=== PATIENT | male | born 1965 | race Caucasian/White ===

== ENCOUNTER 2018-03-09 21:12 | Inpatient (IN) ==
[~2018-03-09 21:12] MED LIST: HEPARIN/NACL 0.9% 2 UNITS/ML 1,500 ML IV ONE; MIDAZOLAM 2 MG/2 ML VIAL ONE; fentaNYL 100 MCG/2 ML VIAL ONE
[2018-03-09] MEDS ORDERED: NITROGLYCERIN DRIP 50 MG/250 ML BOTTLE IV ONE (21:38)
[2018-03-09] MEDS ORDERED: VERAPAMIL 5 MG/2 ML VIAL ONE (21:38)
[2018-03-09] MEDS ORDERED: MIDAZOLAM 2 MG/2 ML VIAL ONE (21:52)
[2018-03-09] MEDS ORDERED: EPTIFIBATIDE 20,000 MCG/10 ML VIAL ONE (21:58)
[2018-03-09] MEDS ORDERED: EPTIFIBATIDE 75 MG/100 ML BOTTLE IV ONE (21:58)
[2018-03-09] MEDS ORDERED: HEPARIN/NACL 0.9% 2 UNITS/ML 500 ML IV ONE (22:13)
[2018-03-09] MEDS ORDERED: NITROGLYCERIN SL 0.4 MG TABLET SL PRN (23:27)
[2018-03-09] MEDS ORDERED: ACETAMINOPHEN 325 MG TABLET PO PRN (23:27)
[2018-03-09] MEDS ORDERED: ZALEPLON 5 MG CAPSULE PO PRN (23:27)
[2018-03-09] MEDS ORDERED: ACETAMINOPHEN/CODEINE 300-30 MG TABLET PO PRN (23:27)
[2018-03-09] MEDS ORDERED: SODIUM CHLORIDE 0.45% 1,000 ML IV SCH (23:30)
[2018-03-10 00:16] LABS: Basophils % 0.2 % (0.0-0.8); Eosinophils % 0.4 % (0.00-10.9); Hematocrit 41.2 VOL% (42.0-52.0); Hemoglobin 14.5 GM/DL (14.0-18.0); Immature Granulocytes % 0.3 %; Immature Granulocytes Absolute 0.03 #; Lymphocytes % 32.2 % (21.2-54.2); Mean Corpuscular HGB Conc 35.2 GM/DL (32-36); Mean Corpuscular Hemoglobin 29 PG (27-34); Mean Corpuscular Volume 82.6 FL (87-102); Mean Platelet Volume 12.4 FL (9.6-12.0); Neutrophils # 5.2 10*3/uL (1.4-7.4); Neutrophils % 55.9 % (38.7-73.9); Platelet Count 139 T/CUMM (130-400); Red Blood Count 4.99 MC/CUMM (3.8-5.5); Red Cell Distribution Width 12.7 % (9.3-17.3); White Blood Count 9.4 T/CUMM (4-12)
[2018-03-10 00:39] LABS: Albumin 3.3 G/DL (3.4-5.0); Bilirubin,Total 2.4 MG/DL (0.2-1.0); Calcium 8.3 MG/DL (8.5-10.1); Osmolality,Calculated 280.8 MOS/KG (273-304); Potassium 3.5 MMOL/L (3.5-5.1); Total Protein 7.1 G/DL (6.4-8.3)
[2018-03-10 00:44] LABS: Troponin I Only 7.98 NG/ML (0.00-0.045)
[2018-03-10] MEDS ORDERED: NITROGLYCERIN DRIP 50 MG/250 ML BOTTLE IV PRN (00:58)
[2018-03-10] MEDS: fentaNYL 100 MCG/2 ML VIAL IV PRN ×3 (03:03→10:23)
[2018-03-10 04:53] LABS: Basophils % 0.4 % (0.0-0.8); Eosinophils % 0.2 % (0.00-10.9); Hematocrit 38.4 VOL% (42.0-52.0); Immature Granulocytes % 0.4 %; Immature Granulocytes Absolute 0.04 #; Lymphocytes # 1.9 10*3/uL (1.4-4.0); Lymphocytes % 17.1 % (21.2-54.2); Mean Corpuscular HGB Conc 36.5 GM/DL (32-36); Mean Corpuscular Hemoglobin 29 PG (27-34); Mean Corpuscular Volume 80.2 FL (87-102); Mean Platelet Volume 11.7 FL (9.6-12.0); Monocytes # 1.1 10*3/uL (0.11-0.8); Neutrophils % 71.9 % (38.7-73.9); Platelet Count 132 T/CUMM (130-400); Red Blood Count 4.79 MC/CUMM (3.8-5.5); Red Cell Distribution Width 12.6 % (9.3-17.3)
[2018-03-10 05:26] LABS: Calcium 8.2 MG/DL (8.5-10.1); Osmolality,Calculated 275.2 MOS/KG (273-304); Potassium 3.5 MMOL/L (3.5-5.1); Risk Ratio 3.84; VLDL CHOLESTEROL 27.2 MG/DL
[2018-03-10] MEDS: ONDANSETRON 4 MG/2 ML VIAL IV PRN ×4 (07:58→21:27)
[2018-03-10] MEDS ORDERED: TICAGRELOR 90 MG TABLET PO SCH (09:00)
[2018-03-10] MEDS: CARVEDILOL 6.25 MG TABLET PO SCH ×2 (09:02→20:38)
[2018-03-10] MEDS: ISOSORBIDE MONONITRATE 30 MG TABLET PO SCH (09:02)
[2018-03-10] MEDS: PANTOPRAZOLE 40 MG TABLET PO SCH (09:02)
[2018-03-10] MEDS: ASPIRIN EC 81 MG TABLET PO SCH (09:02)
[2018-03-10 10:00] LABS: CKMB % 2.2 %
[2018-03-10 10:01] LABS: Troponin I Only 6.55 NG/ML (0.00-0.045)
[2018-03-10 17:07] LABS: Troponin I Only 5.34 NG/ML (0.00-0.045)
[2018-03-10] MEDS: ENOXAPARIN 40 MG/0.4 ML SYRINGE SUBCUT SCH (17:24)
[2018-03-10] MEDS: METOCLOPRAMIDE 10 MG/2 ML VIAL IV PRN (18:10)
[2018-03-10] MEDS ORDERED: CLOPIDOGREL 300 MG TABLET PO ONE (18:36)
[2018-03-10] MEDS: ROSUVASTATIN 20 MG TABLET PO SCH (20:38)
[2018-03-11 05:44] LABS: Basophils % 0.2 % (0.0-0.8); Hematocrit 41.6 VOL% (42.0-52.0); Hemoglobin 14.4 GM/DL (14.0-18.0); Immature Granulocytes % 0.5 %; Immature Granulocytes Absolute 0.07 #; Lymphocytes % 7.9 % (21.2-54.2); Mean Corpuscular HGB Conc 34.6 GM/DL (32-36); Mean Corpuscular Hemoglobin 29 PG (27-34); Mean Corpuscular Volume 83.7 FL (87-102); Mean Platelet Volume 11.8 FL (9.6-12.0); Monocytes # 0.7 10*3/uL (0.11-0.8); Monocytes % 5.2 % (1.7-12.7); Neutrophils # 11.4 10*3/uL (1.4-7.4); Neutrophils % 86.2 % (38.7-73.9); Platelet Count 184 T/CUMM (130-400); Red Blood Count 4.97 MC/CUMM (3.8-5.5); Red Cell Distribution Width 12.8 % (9.3-17.3); White Blood Count 13.2 T/CUMM (4-12)
[2018-03-11 06:03] LABS: Calcium 8.7 MG/DL (8.5-10.1); Osmolality,Calculated 282.8 MOS/KG (273-304)
[2018-03-11] MEDS: ONDANSETRON 4 MG/2 ML VIAL IV PRN ×3 (07:33→21:15)
[2018-03-11] MEDS: CARVEDILOL 6.25 MG TABLET PO SCH ×2 (09:28→20:30)
[2018-03-11] MEDS: PANTOPRAZOLE 40 MG TABLET PO SCH (09:28)
[2018-03-11] MEDS: ASPIRIN EC 81 MG TABLET PO SCH (09:28)
[2018-03-11] MEDS: CLOPIDOGREL 75 MG TABLET PO SCH (09:28)
[2018-03-11] MEDS: ISOSORBIDE MONONITRATE 30 MG TABLET PO SCH (09:28)
[2018-03-11] MEDS: METOCLOPRAMIDE 10 MG/2 ML VIAL IV PRN (11:04)
[2018-03-11] MEDS: ENOXAPARIN 40 MG/0.4 ML SYRINGE SUBCUT SCH (17:16)
[2018-03-11] MEDS: ROSUVASTATIN 20 MG TABLET PO SCH (20:30)
[2018-03-12] MEDS: hydrALAZINE 20 MG/1 ML VIAL IV PRN (04:23)
[2018-03-12] MEDS: ONDANSETRON 4 MG/2 ML VIAL IV PRN ×2 (04:23→10:26)
[2018-03-12 04:53] LABS: Basophils % 0.2 % (0.0-0.8); Eosinophils % 0.1 % (0.00-10.9); Hematocrit 43.3 VOL% (42.0-52.0); Hemoglobin 15.4 GM/DL (14.0-18.0); Immature Granulocytes % 0.5 %; Immature Granulocytes Absolute 0.07 #; Lymphocytes # 2.2 10*3/uL (1.4-4.0); Lymphocytes % 15.2 % (21.2-54.2); Mean Corpuscular HGB Conc 35.6 GM/DL (32-36); Mean Corpuscular Hemoglobin 29 PG (27-34); Mean Corpuscular Volume 81.9 FL (87-102); Monocytes # 0.9 10*3/uL (0.11-0.8); Monocytes % 6.3 % (1.7-12.7); Neutrophils # 11.4 10*3/uL (1.4-7.4); Neutrophils % 77.7 % (38.7-73.9); Platelet Count 234 T/CUMM (130-400); Red Blood Count 5.29 MC/CUMM (3.8-5.5); Red Cell Distribution Width 13.1 % (9.3-17.3); White Blood Count 14.6 T/CUMM (4-12)
[2018-03-12 05:24] LABS: Osmolality,Calculated 295.4 MOS/KG (273-304); Potassium 4.2 MMOL/L (3.5-5.1)
[2018-03-12] MEDS: METOCLOPRAMIDE 10 MG/2 ML VIAL IV PRN (09:16)
[2018-03-12] MEDS: CLOPIDOGREL 75 MG TABLET PO SCH (09:17)
[2018-03-12] MEDS: ASPIRIN EC 81 MG TABLET PO SCH (09:17)
[2018-03-12] MEDS: ISOSORBIDE MONONITRATE 30 MG TABLET PO SCH (09:17)
[2018-03-12] MEDS: PANTOPRAZOLE 40 MG TABLET PO SCH (09:17)
[2018-03-12] MEDS: CARVEDILOL 6.25 MG TABLET PO SCH (09:17)
[2018-03-12] MEDS ORDERED: METOCLOPRAMIDE 10 MG/2 ML VIAL IV PRN (16:14)
[2018-03-12] MEDS ORDERED: CARVEDILOL 3.125 MG TABLET PO ONE (17:04)
[2018-03-12] MEDS: ENOXAPARIN 40 MG/0.4 ML SYRINGE SUBCUT SCH (17:15)
[2018-03-12] MEDS: ROSUVASTATIN 20 MG TABLET PO SCH (20:51)
[2018-03-12] MEDS: CARVEDILOL 12.5 MG TABLET PO SCH (20:51)
[2018-03-12] MEDS: PANTOPRAZOLE 40 MG VIAL IV SCH (20:52)
[2018-03-13 04:43] LABS: Basophils % 0.3 % (0.0-0.8); Eosinophils # 0.1 10*3/uL (0.0-0.87); Eosinophils % 0.8 % (0.00-10.9); Hematocrit 40.7 VOL% (42.0-52.0); Hemoglobin 14.5 GM/DL (14.0-18.0); Immature Granulocytes % 0.6 %; Immature Granulocytes Absolute 0.06 #; Lymphocytes # 2.1 10*3/uL (1.4-4.0); Lymphocytes % 21.9 % (21.2-54.2); Mean Corpuscular HGB Conc 35.6 GM/DL (32-36); Mean Corpuscular Hemoglobin 29 PG (27-34); Mean Corpuscular Volume 81.1 FL (87-102); Mean Platelet Volume 11.9 FL (9.6-12.0); Monocytes # 0.9 10*3/uL (0.11-0.8); Neutrophils # 6.4 10*3/uL (1.4-7.4); Neutrophils % 67.4 % (38.7-73.9); Platelet Count 232 T/CUMM (130-400); Red Blood Count 5.02 MC/CUMM (3.8-5.5); Red Cell Distribution Width 12.9 % (9.3-17.3); White Blood Count 9.6 T/CUMM (4-12)
[2018-03-13 05:02] LABS: Calcium 8.8 MG/DL (8.5-10.1); Osmolality,Calculated 291.4 MOS/KG (273-304)
[2018-03-13 10:35] LABS: Albumin 2.9 G/DL (3.4-5.0); Bilirubin,Direct 0.27 MG/DL (0.0-0.20); Bilirubin,Indirect 0.4 MG/DL (0.0-1.0); Bilirubin,Total 0.7 MG/DL (0.2-1.0); Total Protein 6.8 G/DL (6.4-8.3)
[2018-03-13] MEDS: CARVEDILOL 12.5 MG TABLET PO SCH ×2 (10:51→17:03)
[2018-03-13] MEDS: PANTOPRAZOLE 40 MG VIAL IV SCH (10:51)
[2018-03-13] MEDS: ISOSORBIDE MONONITRATE 30 MG TABLET PO SCH (10:51)
[2018-03-13] MEDS: ONDANSETRON 4 MG/2 ML VIAL IV PRN ×2 (10:54→21:26)
[2018-03-13] MEDS: CLOPIDOGREL 75 MG TABLET PO SCH (13:54)
[2018-03-13] MEDS: ASPIRIN EC 81 MG TABLET PO SCH (13:55)
[2018-03-13] MEDS: ENOXAPARIN 40 MG/0.4 ML SYRINGE SUBCUT SCH (17:04)
[2018-03-13] MEDS: PANTOPRAZOLE 40 MG TABLET PO SCH (18:41)
[2018-03-13] MEDS: URSODIOL 300 MG CAPSULE PO SCH (21:26)
[2018-03-13] MEDS: ROSUVASTATIN 20 MG TABLET PO SCH (21:26)
[2018-03-14 06:24] LABS: Basophils % 0.5 % (0.0-0.8); Eosinophils # 0.1 10*3/uL (0.0-0.87); Eosinophils % 1.7 % (0.00-10.9); Hematocrit 42.5 VOL% (42.0-52.0); Hemoglobin 15.2 GM/DL (14.0-18.0); Immature Granulocytes % 0.5 %; Immature Granulocytes Absolute 0.04 #; Lymphocytes # 2.2 10*3/uL (1.4-4.0); Lymphocytes % 26.3 % (21.2-54.2); Mean Corpuscular HGB Conc 35.8 GM/DL (32-36); Mean Corpuscular Hemoglobin 29 PG (27-34); Mean Corpuscular Volume 80.8 FL (87-102); Mean Platelet Volume 11.8 FL (9.6-12.0); Monocytes # 0.8 10*3/uL (0.11-0.8); Monocytes % 9.4 % (1.7-12.7); Neutrophils # 5.2 10*3/uL (1.4-7.4); Neutrophils % 61.6 % (38.7-73.9); Platelet Count 219 T/CUMM (130-400); Red Blood Count 5.26 MC/CUMM (3.8-5.5); Red Cell Distribution Width 12.8 % (9.3-17.3); White Blood Count 8.4 T/CUMM (4-12)
[2018-03-14 06:45] LABS: Calcium 8.6 MG/DL (8.5-10.1); Osmolality,Calculated 285.7 MOS/KG (273-304); Potassium 3.5 MMOL/L (3.5-5.1)
[2018-03-14] MEDS: PANTOPRAZOLE 40 MG TABLET PO SCH ×4 (07:32→18:09)
[2018-03-14] MEDS: CLOPIDOGREL 75 MG TABLET PO SCH (09:54)
[2018-03-14] MEDS: ISOSORBIDE MONONITRATE 30 MG TABLET PO SCH (09:54)
[2018-03-14] MEDS: URSODIOL 300 MG CAPSULE PO SCH ×2 (09:54→21:38)
[2018-03-14] MEDS: ONDANSETRON 4 MG/2 ML VIAL IV PRN (09:54)
[2018-03-14] MEDS: CARVEDILOL 12.5 MG TABLET PO SCH ×2 (09:54→17:41)
[2018-03-14] MEDS: ASPIRIN EC 81 MG TABLET PO SCH (09:54)
[2018-03-14] MEDS: SODIUM CHLORIDE 0.9% 1,000 ML IV SCH ×2 (11:09→18:17)
[2018-03-14] MEDS: hydrALAZINE 20 MG/1 ML VIAL IV PRN (11:35)
[2018-03-14] MEDS: METOCLOPRAMIDE 10 MG/2 ML VIAL IV SCH (17:41)
[2018-03-14] MEDS: ENOXAPARIN 40 MG/0.4 ML SYRINGE SUBCUT SCH (17:41)
[2018-03-14] MEDS: ROSUVASTATIN 20 MG TABLET PO SCH (21:38)
[2018-03-15] MEDS: hydrALAZINE 20 MG/1 ML VIAL IV PRN ×2 (00:17→05:20)
[2018-03-15] MEDS: METOCLOPRAMIDE 10 MG/2 ML VIAL IV SCH ×4 (00:20→17:38)
[2018-03-15] MEDS: SODIUM CHLORIDE 0.9% 1,000 ML IV SCH ×2 (02:38→12:14)
[2018-03-15] MEDS: ONDANSETRON 4 MG/2 ML VIAL IV PRN (04:21)
[2018-03-15 05:01] LABS: Calcium 8.5 MG/DL (8.5-10.1); Osmolality,Calculated 278.7 MOS/KG (273-304); Potassium 3.5 MMOL/L (3.5-5.1)
[2018-03-15 05:10] LABS: Albumin 3.2 G/DL (3.4-5.0); Bilirubin,Direct 0.4 MG/DL (0.0-0.20); Bilirubin,Indirect 1.4 MG/DL (0.0-1.0); Bilirubin,Total 1.8 MG/DL (0.2-1.0); Total Protein 7.3 G/DL (6.4-8.3)
[2018-03-15 05:15] LABS: Basophils # 0.1 10*3/uL (0.0-0.2); Basophils % 0.5 % (0.0-0.8); Eosinophils # 0.1 10*3/uL (0.0-0.87); Eosinophils % 0.8 % (0.00-10.9); Hematocrit 44.9 VOL% (42.0-52.0); Immature Granulocytes % 1.7 %; Immature Granulocytes Absolute 0.16 #; Lymphocytes # 1.5 10*3/uL (1.4-4.0); Lymphocytes % 15.4 % (21.2-54.2); Mean Corpuscular HGB Conc 35.6 GM/DL (32-36); Mean Corpuscular Hemoglobin 29 PG (27-34); Mean Corpuscular Volume 81.8 FL (87-102); Mean Platelet Volume 12.8 FL (9.6-12.0); Monocytes # 0.8 10*3/uL (0.11-0.8); Monocytes % 8.5 % (1.7-12.7); Neutrophils % 73.1 % (38.7-73.9); Platelet Count 212 T/CUMM (130-400); Red Blood Count 5.49 MC/CUMM (3.8-5.5); Red Cell Distribution Width 12.7 % (9.3-17.3); White Blood Count 9.6 T/CUMM (4-12)
[2018-03-15] MEDS: PANTOPRAZOLE 40 MG TABLET PO SCH ×2 (06:41→18:03)
[2018-03-15] MEDS: CARVEDILOL 12.5 MG TABLET PO SCH ×2 (08:12→17:38)
[2018-03-15] MEDS: CLOPIDOGREL 75 MG TABLET PO SCH (08:12)
[2018-03-15] MEDS: ASPIRIN EC 81 MG TABLET PO SCH (08:12)
[2018-03-15] MEDS: URSODIOL 300 MG CAPSULE PO SCH ×2 (08:12→21:00)
[2018-03-15] MEDS: ISOSORBIDE MONONITRATE 30 MG TABLET PO SCH (08:12)
[2018-03-15] MEDS: LOSARTAN 25 MG TABLET PO SCH ×2 (12:08→21:00)
[2018-03-15] MEDS: amLODIPine 5 MG TABLET PO SCH (12:08)
[2018-03-15] MEDS: ENOXAPARIN 40 MG/0.4 ML SYRINGE SUBCUT SCH (17:38)
[2018-03-15] MEDS: ROSUVASTATIN 20 MG TABLET PO SCH (21:00)
[2018-03-16] MEDS: METOCLOPRAMIDE 10 MG/2 ML VIAL IV SCH ×3 (00:12→12:36)
[2018-03-16] MEDS: hydrALAZINE 20 MG/1 ML VIAL IV PRN (04:52)
[2018-03-16] MEDS: PANTOPRAZOLE 40 MG TABLET PO SCH (06:38)
[2018-03-16] MEDS: LOSARTAN 25 MG TABLET PO SCH (09:44)
[2018-03-16] MEDS: URSODIOL 300 MG CAPSULE PO SCH (09:44)
[2018-03-16] MEDS: CLOPIDOGREL 75 MG TABLET PO SCH (09:44)
[2018-03-16] MEDS: ASPIRIN EC 81 MG TABLET PO SCH (09:44)
[2018-03-16] MEDS: ONDANSETRON 4 MG/2 ML VIAL IV PRN (09:44)
[2018-03-16] MEDS: amLODIPine 5 MG TABLET PO SCH (09:44)
[2018-03-16] MEDS: ISOSORBIDE MONONITRATE 30 MG TABLET PO SCH (09:44)
[2018-03-16] MEDS: CARVEDILOL 12.5 MG TABLET PO SCH (09:45)
[2018-03-16 11:53] VITALS: BP 111/71
== END 2018-03-16 14:30 | disposition home or self-care (01) | DRG 282 ==
LOC: N.CL 21:12 → N.ICU 23:27 → N.TELEN 03-11 12:14
PROVIDERS: ADMIT Internal Medicine Cardiovascular Disease; ATTEND Internal Medicine Cardiovascular Disease
PROC: CLCCHCL (ICD-10-PCS; 2018-03-09 22:15)

== ENCOUNTER 2019-09-26 12:54 | Inpatient (IN) ==
[2019-09-26 14:03] LABS: Basophils % 0.6 % (0.0-0.8); Hemoglobin 11.1 GM/DL (14.0-18.0); Immature Granulocytes % 0.6 %; Immature Granulocytes Absolute 0.01 #; Lymphocytes # 0.6 10*3/uL (1.4-4.0); Lymphocytes % 34.1 % (21.2-54.2); Mean Corpuscular HGB Conc 33.6 GM/DL (32-36); Mean Corpuscular Volume 87.1 FL (87-102); Mean Platelet Volume 11.7 FL (9.6-12.0); Monocytes % 5.4 % (1.7-12.7); Neutrophils % 59.3 % (38.7-73.9); Platelet Count 106 T/CUMM (130-400); Red Blood Count 3.79 MC/CUMM (3.8-5.5); Red Cell Distribution Width 13.6 % (9.3-17.3); White Blood Count 1.7 T/CUMM (4-12)
[2019-09-26 14:12] LABS: PT Patient Result 10.7 SECS (9.6-12.2); Partial Thromboplastin Time 32.9 SECS (20.8-36.0)
[2019-09-26 14:44] LABS: Albumin 2.9 G/DL (3.4-5.0); Bilirubin,Total 0.8 MG/DL (0.2-1.0); Calcium 8.9 MG/DL (8.5-10.1); Lymphocytes 37 % (20-55); Osmolality,Calculated 309.4 MOS/KG (273-304); Segmented Neutrophils 53 % (50-85); Total Cells Counted 100; Total Protein 7.2 G/DL (6.4-8.3)
[2019-09-26 14:45] LABS: Hypochromasia Slight; Platelet Estimate Adequate
[2019-09-26 14:46] LABS: Anisocytosis Slight; Microcytosis Slight
[2019-09-26] MEDS ORDERED: SODIUM CHLORIDE 0.9% 1,000 ML IV STA ×2 (14:49→15:49)
[2019-09-26] MEDS ORDERED: INSULIN REGULAR 100 UNIT/ML IV STA (14:49)
[2019-09-26] MEDS ORDERED: LACTATED RINGERS 2,000 ML IV ONE (17:23)
[2019-09-26] MEDS ORDERED: DEXTROSE 50% 25 GM/50 ML VIAL IV PRN ×2 (17:23)
[2019-09-26] MEDS ORDERED: ACETAMINOPHEN 325 MG TABLET PO PRN (17:23)
[2019-09-26] MEDS ORDERED: GLUCAGON 1 MG VIAL IM PRN ×2 (17:23)
[2019-09-26] MEDS ORDERED: NIFEdipine 10 MG CAPSULE PO PRN (17:23)
[2019-09-26] MEDS: INSULIN REGULAR 100 UNIT/ML SUBCUT SCH ×2 (17:36→21:39)
[2019-09-26] MEDS: PANTOPRAZOLE 40 MG TABLET PO SCH (17:36)
[2019-09-26] MEDS: ONDANSETRON 4 MG/2 ML VIAL IV PRN (19:28)
[2019-09-26] MEDS: LACTATED RINGERS 1,000 ML IV SCH (19:49)
[2019-09-26] MEDS: ENOXAPARIN 30 MG/0.3 ML SYRINGE SUBCUT SCH (20:35)
[2019-09-27] MEDS: INSULIN REGULAR 100 UNIT/ML SUBCUT SCH ×4 (01:42→11:45)
[2019-09-27 05:03] LABS: Basophils % 0.5 % (0.0-0.8); Eosinophils % 0.5 % (0.00-10.9); Hematocrit 26.3 VOL% (42.0-52.0); Hemoglobin 9.3 GM/DL (14.0-18.0); Immature Granulocytes Absolute 0.14 #; Lymphocytes # 1.1 10*3/uL (1.4-4.0); Lymphocytes % 56.3 % (21.2-54.2); Mean Corpuscular HGB Conc 35.4 GM/DL (32-36); Mean Corpuscular Volume 82.7 FL (87-102); Monocytes % 7.5 % (1.7-12.7); Neutrophils % 28.2 % (38.7-73.9); Platelet Count 92 T/CUMM (130-400); Red Blood Count 3.18 MC/CUMM (3.8-5.5); Red Cell Distribution Width 13.5 % (9.3-17.3)
[2019-09-27 05:41] LABS: Calcium 8.4 MG/DL (8.5-10.1); Osmolality,Calculated 276.2 MOS/KG (273-304)
[2019-09-27 05:47] LABS: Troponin I 1.21 NG/ML (0.00-0.045)
[2019-09-27] MEDS: LACTATED RINGERS 1,000 ML IV SCH ×2 (05:50→15:46)
[2019-09-27 06:14] LABS: Lymphocytes 62 % (20-55); Platelet Estimate Decreased; Segmented Neutrophils 36 % (50-85); Total Cells Counted 100
[2019-09-27 06:15] LABS: Hypochromasia Slight; Microcytosis 2+
[2019-09-27 06:16] LABS: Stomatocytes Slight
[2019-09-27] MEDS: ONDANSETRON 4 MG/2 ML VIAL IV PRN ×4 (06:27→21:57)
[2019-09-27] MEDS: MAGNESIUM SULF RIDER 4 GM in PREMIX 1 EACH IV PRN (06:37)
[2019-09-27] MEDS: POTASSIUM CHLORIDE RIDER 10 MEQ in PREMIX 1 EACH IV PRN ×3 (06:40→09:40)
[2019-09-27] MEDS: HYDROmorphone 2 MG/1 ML VIAL IV PRN ×3 (08:03→18:08)
[2019-09-27] MEDS: PANTOPRAZOLE 40 MG TABLET PO SCH (08:05)
[2019-09-27] MEDS: CLOPIDOGREL 75 MG TABLET PO SCH (08:06)
[2019-09-27] MEDS: ISOSORBIDE MONONITRATE 30 MG TABLET PO SCH (09:47)
[2019-09-27] MEDS: SIMVASTATIN 20 MG TABLET PO SCH (16:42)
[2019-09-27] MEDS: INSULIN GLARGINE 100 UNIT/ML SUBCUT SCH (16:42)
[2019-09-27] MEDS: INSULIN LISPRO 100 UNIT/ML SUBCUT SCH (16:42)
[2019-09-27] MEDS: MYLANTA/LIDO VISC/NYST 180 ML BOTTLE SWISH/SWAL PRN ×2 (16:43→22:17)
[2019-09-27] MEDS ORDERED: INSULIN LISPRO 100 UNIT/ML SUBCUT SCH (17:00)
[2019-09-27] MEDS ORDERED: INSULIN GLARGINE 100 UNIT/ML SUBCUT SCH (17:00)
[2019-09-27] MEDS: ENOXAPARIN 30 MG/0.3 ML SYRINGE SUBCUT SCH (21:59)
[2019-09-27] MEDS: carvediloL 25 MG TABLET PO SCH (22:00)
[2019-09-28] MEDS: LACTATED RINGERS 1,000 ML IV SCH ×3 (01:52→23:53)
[2019-09-28 05:16] LABS: Eosinophils % 0.5 % (0.00-10.9); Hematocrit 25.2 VOL% (42.0-52.0); Hemoglobin 8.8 GM/DL (14.0-18.0); Immature Granulocytes Absolute 0.02 #; Lymphocytes # 1.3 10*3/uL (1.4-4.0); Lymphocytes % 66.7 % (21.2-54.2); Mean Corpuscular HGB Conc 34.9 GM/DL (32-36); Mean Platelet Volume 12.6 FL (9.6-12.0); Monocytes % 15.6 % (1.7-12.7); Neutrophils % 16.2 % (38.7-73.9); Platelet Count 76 T/CUMM (130-400); Red Cell Distribution Width 13.7 % (9.3-17.3); White Blood Count 1.9 T/CUMM (4-12)
[2019-09-28 05:38] LABS: Calcium 7.9 MG/DL (8.5-10.1); Osmolality,Calculated 277.4 MOS/KG (273-304)
[2019-09-28] MEDS: MAGNESIUM SULF RIDER 4 GM in PREMIX 1 EACH IV PRN (06:05)
[2019-09-28 06:06] LABS: Lymphocytes 78 % (20-55); Metamyelocytes 4 %; Platelet Estimate Decreased; Polychromasia Few; Segmented Neutrophils 13 % (50-85); Total Cells Counted 99
[2019-09-28] MEDS: ONDANSETRON 4 MG/2 ML VIAL IV PRN ×3 (07:53→16:36)
[2019-09-28] MEDS: HYDROmorphone 2 MG/1 ML VIAL IV PRN ×3 (08:14→18:06)
[2019-09-28] MEDS: INSULIN LISPRO 100 UNIT/ML SUBCUT SCH ×3 (08:34→16:36)
[2019-09-28] MEDS: INSULIN GLARGINE 100 UNIT/ML SUBCUT SCH (08:34)
[2019-09-28] MEDS: carvediloL 25 MG TABLET PO SCH ×2 (08:35→20:35)
[2019-09-28] MEDS: CLOPIDOGREL 75 MG TABLET PO SCH (08:35)
[2019-09-28] MEDS: ISOSORBIDE MONONITRATE 30 MG TABLET PO SCH ×2 (08:35→09:24)
[2019-09-28] MEDS: PANTOPRAZOLE 40 MG TABLET PO SCH ×3 (08:35→20:35)
[2019-09-28] MEDS: LOSARTAN 25 MG TABLET PO SCH (08:35)
[2019-09-28] MEDS: POTASSIUM CHLORIDE RIDER 10 MEQ in PREMIX 1 EACH IV PRN ×4 (08:43→12:18)
[2019-09-28] MEDS ORDERED: MAGNESIUM SULF RIDER 4 GM in PREMIX 1 EACH IV ONE (09:09)
[2019-09-28] MEDS: POTASSIUM CHLORIDE 20 MEQ TABLET PO SCH ×4 (09:50→20:42)
[2019-09-28] MEDS: SIMVASTATIN 20 MG TABLET PO SCH (16:37)
[2019-09-28] MEDS: ENOXAPARIN 30 MG/0.3 ML SYRINGE SUBCUT SCH (20:35)
[2019-09-29 05:19] LABS: Basophils % 0.9 % (0.0-0.8); Eosinophils % 0.4 % (0.00-10.9); Hematocrit 25.3 VOL% (42.0-52.0); Hemoglobin 8.7 GM/DL (14.0-18.0); Immature Granulocytes % 8.2 %; Immature Granulocytes Absolute 0.19 #; Lymphocytes # 1.5 10*3/uL (1.4-4.0); Lymphocytes % 64.1 % (21.2-54.2); Mean Corpuscular HGB Conc 34.4 GM/DL (32-36); Mean Corpuscular Volume 85.2 FL (87-102); Mean Platelet Volume 12.1 FL (9.6-12.0); Monocytes % 16.5 % (1.7-12.7); NRBC # 0.07 10*3/uL; Neutrophils % 9.9 % (38.7-73.9); Red Blood Count 2.97 MC/CUMM (3.8-5.5); Red Cell Distribution Width 13.8 % (9.3-17.3); White Blood Count 2.3 T/CUMM (4-12)
[2019-09-29 05:34] LABS: Calcium 7.8 MG/DL (8.5-10.1); Osmolality,Calculated 288.3 MOS/KG (273-304)
[2019-09-29 05:35] LABS: Troponin I 0.249 NG/ML (0.00-0.045)
[2019-09-29 05:37] LABS: Platelet Count 76 T/CUMM (130-400)
[2019-09-29 05:50] LABS: Atypical Lymphocytes Few; Lymphocytes 72 % (20-55); Myelocytes 1 %; Nucleated Red Blood Cells 1 (0-5); Promyelocytes 1 %; Segmented Neutrophils 16 % (50-85); Total Cells Counted 100
[2019-09-29 05:51] LABS: Hypochromasia 1+; Microcytosis 1+
[2019-09-29 05:52] LABS: Platelet Estimate Decreased
[2019-09-29] MEDS: HYDROmorphone 2 MG/1 ML VIAL IV PRN ×3 (07:39→21:51)
[2019-09-29] MEDS: ONDANSETRON 4 MG/2 ML VIAL IV PRN ×2 (07:42→11:31)
[2019-09-29] MEDS: INSULIN LISPRO 100 UNIT/ML SUBCUT SCH ×3 (09:08→16:31)
[2019-09-29] MEDS: carvediloL 25 MG TABLET PO SCH ×2 (09:09→21:01)
[2019-09-29] MEDS: INSULIN GLARGINE 100 UNIT/ML SUBCUT SCH (09:09)
[2019-09-29] MEDS: METAXALONE 800 MG TABLET PO SCH ×3 (09:09→21:01)
[2019-09-29] MEDS: ISOSORBIDE MONONITRATE 30 MG TABLET PO SCH (09:10)
[2019-09-29] MEDS: LOSARTAN 25 MG TABLET PO SCH (09:10)
[2019-09-29] MEDS: CLOPIDOGREL 75 MG TABLET PO SCH (09:10)
[2019-09-29] MEDS: PANTOPRAZOLE 40 MG TABLET PO SCH ×2 (09:10→21:01)
[2019-09-29] MEDS: LACTATED RINGERS 1,000 ML IV SCH (09:15)
[2019-09-29] MEDS: MAGNESIUM SULF RIDER 2 GM in PREMIX 1 EACH IV PRN (10:13)
[2019-09-29] MEDS: SIMVASTATIN 20 MG TABLET PO SCH (16:36)
[2019-09-29] MEDS: ENOXAPARIN 30 MG/0.3 ML SYRINGE SUBCUT SCH (21:01)
[2019-09-30 05:38] LABS: Basophils % 1.1 % (0.0-0.8); Eosinophils % 0.4 % (0.00-10.9); Hemoglobin 9.3 GM/DL (14.0-18.0); Immature Granulocytes % 10.5 %; Lymphocytes # 1.7 10*3/uL (1.4-4.0); Lymphocytes % 59.6 % (21.2-54.2); Mean Corpuscular HGB Conc 34.4 GM/DL (32-36); Mean Corpuscular Volume 85.4 FL (87-102); Mean Platelet Volume 12.1 FL (9.6-12.0); Monocytes % 19.3 % (1.7-12.7); NRBC # 0.12 10*3/uL; Neutrophils % 9.1 % (38.7-73.9); Platelet Count 88 T/CUMM (130-400); Red Blood Count 3.16 MC/CUMM (3.8-5.5); White Blood Count 2.9 T/CUMM (4-12)
[2019-09-30 06:26] LABS: Lymphocytes 63 % (20-55); Nucleated Red Blood Cells 3 (0-5); Segmented Neutrophils 23 % (50-85); Total Cells Counted 99
[2019-09-30 06:27] LABS: Hypochromasia 1+; Microcytosis 1+; Platelet Estimate Decreased
[2019-09-30] MEDS: INSULIN LISPRO 100 UNIT/ML SUBCUT SCH ×3 (07:51→17:01)
[2019-09-30] MEDS: carvediloL 25 MG TABLET PO SCH ×2 (08:51→20:44)
[2019-09-30] MEDS: ISOSORBIDE MONONITRATE 30 MG TABLET PO SCH (08:51)
[2019-09-30] MEDS: PANTOPRAZOLE 40 MG TABLET PO SCH ×2 (08:51→20:44)
[2019-09-30] MEDS: METAXALONE 800 MG TABLET PO SCH ×3 (08:51→20:44)
[2019-09-30] MEDS: LOSARTAN 25 MG TABLET PO SCH (08:51)
[2019-09-30] MEDS: CLOPIDOGREL 75 MG TABLET PO SCH (08:51)
[2019-09-30] MEDS: INSULIN GLARGINE 100 UNIT/ML SUBCUT SCH (08:52)
[2019-09-30] MEDS: LEVOFLOXACIN 750 MG TABLET PO SCH (11:26)
[2019-09-30] MEDS: SIMVASTATIN 20 MG TABLET PO SCH (17:01)
[2019-09-30] MEDS: ENOXAPARIN 30 MG/0.3 ML SYRINGE SUBCUT SCH (20:45)
[2019-09-30] MEDS: HYDROmorphone 2 MG/1 ML VIAL IV PRN (20:55)
[2019-10-01] MEDS: METAXALONE 800 MG TABLET PO SCH ×3 (08:23→20:52)
[2019-10-01] MEDS: LOSARTAN 25 MG TABLET PO SCH (08:23)
[2019-10-01] MEDS: INSULIN GLARGINE 100 UNIT/ML SUBCUT SCH (08:24)
[2019-10-01] MEDS: INSULIN LISPRO 100 UNIT/ML SUBCUT SCH ×3 (08:24→16:36)
[2019-10-01] MEDS: ISOSORBIDE MONONITRATE 30 MG TABLET PO SCH (08:24)
[2019-10-01] MEDS: CLOPIDOGREL 75 MG TABLET PO SCH (08:24)
[2019-10-01] MEDS: carvediloL 25 MG TABLET PO SCH ×2 (08:24→20:52)
[2019-10-01] MEDS: PANTOPRAZOLE 40 MG TABLET PO SCH ×2 (08:24→20:52)
[2019-10-01] MEDS: LEVOFLOXACIN 750 MG TABLET PO SCH (08:30)
[2019-10-01] MEDS ORDERED: FILGRASTIM-SNDZ 300 MCG/0.5 ML SYRINGE SUBCUT SCH (09:00)
[2019-10-01 09:26] LABS: Calcium 8.1 MG/DL (8.5-10.1); Osmolality,Calculated 283.8 MOS/KG (273-304)
[2019-10-01] MEDS: HYDROmorphone 2 MG/1 ML VIAL IV PRN ×2 (09:43→21:01)
[2019-10-01] MEDS ORDERED: POTASSIUM CHLORIDE 20 MEQ TABLET PO ONE (14:59)
[2019-10-01] MEDS: MAGNESIUM SULF RIDER 2 GM in PREMIX 1 EACH IV PRN (15:20)
[2019-10-01] MEDS: SIMVASTATIN 20 MG TABLET PO SCH (16:36)
[2019-10-01] MEDS: ENOXAPARIN 30 MG/0.3 ML SYRINGE SUBCUT SCH (20:52)
[2019-10-02 05:23] LABS: Basophils # 0.1 10*3/uL (0.0-0.2); Basophils % 0.4 % (0.0-0.8); Eosinophils % 0.3 % (0.00-10.9); Hematocrit 28.5 VOL% (42.0-52.0); Hemoglobin 9.6 GM/DL (14.0-18.0); Immature Granulocytes % 6.6 %; Immature Granulocytes Absolute 0.88 #; Lymphocytes # 3.1 10*3/uL (1.4-4.0); Mean Corpuscular HGB Conc 33.7 GM/DL (32-36); Mean Corpuscular Volume 86.9 FL (87-102); Mean Platelet Volume 11.7 FL (9.6-12.0); Monocytes % 8.4 % (1.7-12.7); NRBC # 0.15 10*3/uL; Neutrophils % 61.3 % (38.7-73.9); Platelet Count 166 T/CUMM (130-400); Red Blood Count 3.28 MC/CUMM (3.8-5.5); White Blood Count 13.4 T/CUMM (4-12)
[2019-10-02 05:35] LABS: Albumin 2.5 G/DL (3.4-5.0); Bilirubin,Total 0.7 MG/DL (0.2-1.0); Calcium 8.4 MG/DL (8.5-10.1); Osmolality,Calculated 281.5 MOS/KG (273-304); Total Protein 6.6 G/DL (6.4-8.3)
[2019-10-02 05:46] LABS: Atypical Lymphocytes Few; Band Neutrophils 7 % (0-10); Hypochromasia 1+; Lymphocytes 25 % (20-55); Metamyelocytes 2 %; Microcytosis 1+; Nucleated Red Blood Cells 1 (0-5); Polychromasia Slight; Segmented Neutrophils 58 % (50-85); Total Cells Counted 100
[2019-10-02 05:47] LABS: Giant Platelets Few; Platelet Estimate Adequate
[2019-10-02] MEDS: INSULIN GLARGINE 100 UNIT/ML SUBCUT SCH (09:02)
[2019-10-02] MEDS: carvediloL 25 MG TABLET PO SCH (09:02)
[2019-10-02] MEDS: CLOPIDOGREL 75 MG TABLET PO SCH (09:02)
[2019-10-02] MEDS: INSULIN LISPRO 100 UNIT/ML SUBCUT SCH (09:02)
[2019-10-02] MEDS: LEVOFLOXACIN 750 MG TABLET PO SCH (09:02)
[2019-10-02] MEDS: ISOSORBIDE MONONITRATE 30 MG TABLET PO SCH (09:02)
[2019-10-02] MEDS: METAXALONE 800 MG TABLET PO SCH (09:02)
[2019-10-02] MEDS: LOSARTAN 25 MG TABLET PO SCH (09:02)
[2019-10-02] MEDS: PANTOPRAZOLE 40 MG TABLET PO SCH (09:02)
[2019-10-02] MEDS: MAGNESIUM SULF RIDER 2 GM in PREMIX 1 EACH IV PRN (09:03)
[2019-10-02 12:38] VITALS: BP 114/72
== END 2019-10-02 12:32 | disposition home or self-care (01) | DRG 637 ==
LOC: EDUNIT# → EDBD → N.ED 12:54 → N.EDINP 15:40 → SUATTDRO 15:40 → N.CC 17:10 → N.4E 09-28 12:43
PROVIDERS: ADMIT Internal Medicine; ATTEND Internal Medicine